=== PATIENT | female | born 1985 | race African-American/Black ===

== ENCOUNTER 2021-01-18 19:41 | Emergency (ER) | payer SELFPAY ==
[~2021-01-18] VITALS: Ht 170.2 cm; Wt 98.3 kg
[2021-01-18] MEDS: LORazepam 2 MG/ML VIAL IM ONE ×2 (20:22→20:47)
[2021-01-18] MEDS: HALOPERIDOL LACTATE 5 MG/ML VIAL IM ONE ×2 (20:23→20:47)
[2021-01-18] MEDS: DiphenhydrAMINE HCL 50 MG/ML VIAL IM ONE ×2 (20:23→20:47)
[2021-01-18 21:00] VITALS: BP 115/73
== END 2021-01-18 21:31 | disposition home or self-care (01) ==
LOC: EMS 19:41
DX: R45.1 Restlessness and agitation (principal); F17.210 Nicotine dependence, cigarettes, uncomplicated
CPT/HCPCS: 96372; 99284; J1200; J1630; J2060; 99285